=== PATIENT | male | born 1980 | race Caucasian/White ===

== ENCOUNTER 2017-04-17 14:02 | Emergency (ER) | payer OTHER ==
[~2017-04-17] VITALS: Ht 175.3 cm; Wt 54.4 kg
== END 2017-04-17 15:18 | disposition home or self-care (01) ==
LOC: ER 14:02
DX: F41.9 Anxiety disorder, unspecified (principal); F63.9 Impulse disorder, unspecified; Z88.8 Allergy status to other drugs, medicaments and biological substances